=== PATIENT | male | born 1945 | race Caucasian/White ===

== ENCOUNTER 2017-02-15 07:56 | Outpatient (CLI) | payer MEDICARE ==
[2017-02-15 14:10] LABS: PSA FREE 1.116 ng/mL (0.16-2.81)
[2017-02-15 14:11] LABS: PSA TOTAL 4.789 ng/mL (0.000-2.000)
== END 2017-02-15 07:57 | disposition home or self-care (01) ==
LOC: LAB.N 07:56
PROVIDERS: ATTEND Internal Medicine
DX: R89.9 Unspecified abnormal finding in specimens from other organs, systems and tissues (principal)
CPT/HCPCS: 84154

== ENCOUNTER 2017-07-12 17:17 | Outpatient (CLI) | payer MEDICARE ==
[2017-07-12 13:01] LABS: ALBUMIN 3.8 g/dL (3.2-5.5); ALBUMIN/GLOBULIN RATIO 1.7 (1.0-2.2); BILIRUBIN,TOTAL 0.8 mg/dL (0.2-1.0); CALCIUM 8.7 mg/dL (8.5-10.3); CREATININE 1.1 mg/dL (0.6-1.2); MAGNESIUM 1.9 mg/dL (1.7-2.8); PHOSPHORUS 3.8 mg/dL (2.5-4.6); TOTAL PROTEIN 6.1 g/dL (6.7-8.2)
[2017-07-12 13:14] LABS: THYROID STIMULATING HORMONE 4.49 uIU/mL (0.34-5.60)
== END 2017-07-12 17:18 | disposition home or self-care (01) ==
LOC: LAB.N 17:17
PROVIDERS: ATTEND Internal Medicine
DX: G47.62 Sleep related leg cramps (principal); R89.9 Unspecified abnormal finding in specimens from other organs, systems and tissues; Z79.899 Other long term (current) drug therapy
CPT/HCPCS: 36415; 80053; 82728; 83735; 84100; 84443; 84550

== ENCOUNTER 2017-08-13 07:46 | Outpatient (CLI) | payer MEDICARE ==
[2017-08-13 12:43] LABS: PSA FREE 1.25 ng/mL (0.16-2.81)
[2017-08-13 12:44] LABS: PSA TOTAL 6.07 ng/mL (0.000-2.000)
== END 2017-08-13 07:47 | disposition home or self-care (01) ==
LOC: LAB.N 07:46
PROVIDERS: ATTEND Internal Medicine
DX: R89.9 Unspecified abnormal finding in specimens from other organs, systems and tissues (principal)
CPT/HCPCS: 36415; 84154

== ENCOUNTER 2017-10-09 08:28 | Outpatient (CLI) | payer MEDICARE ==
--- NOTE | 2017-10-10 21:58 | MRI Report ---
EXAM: RIGHT HAND MRI WITHOUT CONTRAST EXAM DATE: 10/09/2017 10:37 AM. CLINICAL HISTORY: Unable to fully extend the right thumb. Previous carpal tunnel surgery 2-3 years ag o. Thumb twitching uncontrollably. Nontraumatic rupture of extensor tendons of right thumb. COMPARISON: None. TECHNIQUE: Multiplanar, multisequence T1-weighted and fluid-sensitive sequences of the hand without c ontrast. Other: None. FINDINGS: Some of the images are degraded due to patient-related motion artifact. Bones and articular cartilage: [id number] first metacarpophalangeal joint osteoarthritis. Mild osteoarthritis and small effusion at the first carpometacarpal joint. No acute fracture or bone lesio ns. Ligaments: The visualized collateral ligaments are intact. Tendons: There is a chronic-appearing, full-thickness or near full-thickness tear of the extensor nahum licis longus tendon at the level of the scaphoid-trapezium joint. The abductor pollicis longus and ex tensor pollicis brevis tendons are intact. The flexor pollicis longus and adductor pollicis tendons a re intact. There is mild fourth digit flexor digitorum tenosynovitis. Musculature: No edema or fatty atrophy. Other: Mild subcutaneous edema at the dorsal radial aspect of the thumb. IMPRESSION: 1. 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 2. [id number] first metacarpophalangeal and mild first carpometacarpal joint osteoarthritis. Sm all first carpometacarpal joint effusion. [facility] MUSCULOSKELETAL RADIOLOGY SECTION Referring Provider Line: [phone] SITE ID: [id number]
== END 2017-10-09 08:29 | disposition home or self-care (01) ==
LOC: DI 08:28
PROVIDERS: ATTEND Orthopaedic Surgery Hand Surgery
DX: S66.211A Strain of extensor muscle, fascia and tendon of right thumb at wrist and hand level, initial encounter (principal)

== ENCOUNTER 2020-09-26 | Outpatient (CLI) | payer MEDICARE | END 2020-09-26 18:23 | disposition EMS.NT ==